=== PATIENT | female | born 1990 | race Caucasian/White ===

== ENCOUNTER → 2020-09-04 16:40 | Outpatient (CLI) | payer BC, SELFPAY | PROVIDERS: Visit Provider Nurse Practitioner Adult Health | DX: Z87.442 Personal history of urinary calculi (principal) | CPT/HCPCS: 82360 ==

== ENCOUNTER 2020-09-17 12:30 | Outpatient (CLI) | payer BC, SELFPAY ==
[2020-09-17 12:59] VITALS: BMI 29.8
--- NOTE | 2020-09-17 18:22 | OB.TRI.PN ---
Progress Notes Date of Service: 09/17/20 Progress Note: 30 year old G [id number] at 37 weeks. Presented to office visit today with decreased movement. NST equviocal and sent to labor and delivery for further monitoring. Irregular contractions but nothing painful. No vaginal bleeding or leakage of fluid. O: Cervix: 2cm/50/-2 FHT:130, moderate variability, accels, reactive TOCO: Irregular, mild Assessment & Plan (1) Decreased movement: PLAN: 1) NST reactive 2) Minimal cervical change and comfortable, ok to D/C home. Labor instructions reviewed 3) D/C home
== END 2020-09-17 15:05 | disposition home or self-care (01) ==
LOC: WPOUT 12:39 → WP 12:40
PROVIDERS: Visit Provider Advanced Practice Midwife
DX: O36.8130 Decreased fetal movements, third trimester, not applicable or unspecified (principal); Z3A.37 37 weeks gestation of pregnancy
CPT/HCPCS: 59025; 59050; 99218; G0378

== ENCOUNTER 2020-09-30 06:50 | Inpatient (IN) | payer BC, SELFPAY ==
[2020-09-30] VITALS (19 sets, daily range): BP systolic 105–136; BP diastolic 56–85; PULSE 85–103; RESP 16; TEMP 37–37.1; BMI 30.4
[2020-09-30] MEDS: Lactated Ringers 1,000 ML 50 ML IV (07:30)
[2020-09-30 08:03] LABS: Absolute Lymphocyte Count 1.49 X10^3/uL (0.83-4.51); Absolute Neutrophil Count 8.3 X10^3/uL (2.0-7.7); Basophil# 0.02 X10^3/uL; Basophil% 0.2 % (0-1); Eosinophil# 0.04 X10^3/uL; Eosinophils% 0.4 % (0-5); Hematocrit 33.8 % (37-47); Hemoglobin 11.6 g/dL (12.0-15.0); Lymphocyte # 1.49 X10^3/ul (0.83-4.51); Lymphocyte % 13.7 % (19-41); Mean Corp Hgb Conc 34.3 g/dL (32-36); Mean Corpuscular Hgb 30.6 pg (27.0-32.0); Mean Corpuscular Volume 89.2 fL (81-99); Mean Platelet Vol. 11.2 fl (6.2-12.0); Monocyte# 0.99 X10^3/uL; Monocyte% 9.1 % (0-10); NRBC Flagged by Analyzer 0 % (0-5); Neutrophil # 8.27 X10^3/uL (2.7-7.7); Platelet Count 132 K/mm3 (150-450); RBC Distribution Width SD 45.5 fl (35.1-43.9); Red Blood Count 3.79 M/mm3 (4.2-5.4); White Blood Count 10.9 K/mm3 (4.4-11.0)
[2020-09-30] MEDS: Oxytocin 30 units/NS 500 ml 30 UNITS/500 ML IV.SOLN IV (08:03)
[2020-09-30 10:22] LABS: Amphetamine Urine VISTA NEGATIVE (<1000 ng/mL); Barbiturate Urine VISTA NEGATIVE (< 200 ng/mL); Benzodiazepine Urine VISTA NEGATIVE (< 200 ng/mL); Cocaine Urine VISTA NEGATIVE (< 300 ng/mL); Ecstacy Urine VISTA NEGATIVE (< 500 ng/mL); Methadone Urine VISTA NEGATIVE (< 300 ng/mL); PCP Urine VISTA NEGATIVE (< 25 ng/mL); THC Urine VISTA NEGATIVE (< 50 ng/mL); Vista UDS pH Range 7
--- NOTE | 2020-09-30 11:55 | PCM.HP.OB ---
HPI - General General Date of Admission: 09/30/20 HPI Narrative MELISSA BELLE, is a 30 F who presents for induction of labor due to polyhydramnios. at 39 weeks with ISIS:10/07/20. OB history significant for macrosomia with last delivery 9lb 10oz uncomplicated. benign gestational thrombocytopenia, history of gestational HTN, calculus of kidney, excessive growth during 97th percentile 9lb 7oz. Maternal Data Information Final ISIS: 10/07/20 Final ISIS Source: US <20 weeks Gestational age: 39 weeks PFSH PFSH Home Medications [place] 09/17/20 [History Last Taken 05/21/20 10:00] aspirin [Aspirin Low Dose] 09/17/20 [History Last Taken 05/21/20 10:00] Allergy/AdvReac Type Severity Reaction Status Date / Time No Known Allergies Allergy Verified 09/17/20 13:01 Social History Smoking Status: Never smoker History Elective abortions Hx Para 2 Spontaneous abortions Hx # Term Pregnancies Ectopic pregnancies Hx # Pregnancies Multiple births # of living children NST FHR Rate Baby A Baseline: 135 Variability:: Moderate Accelerations:: 15 x 15 Decelerations:: None FHR Category:: Category I Uterine Activity:: Every 2-3 minutes ROS Constitutional Constitutional: Reports systems reviewed and no addt'l complaints, except as documented; Denies headache(s) Eyes Eyes: Denies acute decrease in peripheral vision, blurry vision or change in vision ENT HEENT: Reports systems reviewed and no addt'l complaints, except as documented Cardiovascular Cardiovascular: Denies chest pain or dizziness Respiratory/Chest Respiratory/Chest: Denies cough, dyspnea, dyspnea on exertion, shortness of breath at rest or shortness of breath with exertion Gastrointestinal Gastrointestinal: Denies abdominal pain, diarrhea, nausea or vomiting Genitourinary Genitourinary: Denies abdominal discomfort or movement Musculoskeletal Musculoskeletal: Denies limited range of motion Integumentary Integumentary: Reports systems reviewed and no addt'l complaints, except as documented Neurologic Neurologic: Reports systems reviewed and no addt'l complaints, except as documented Psychiatric Psychiatric: Reports systems reviewed and no addt'l complaints, except as documented Endocrine Endocrinology: Reports systems reviewed and no addt'l complaints, except as documented Hematologic/Lymphatic Hematologic/Lymphatic: Reports systems reviewed and no addt'l complaints, except as documented Allergic/Immunologic Allergic/Immunologic: Reports systems reviewed and no addt'l complaints, except as documented Vital Signs Vital Signs Vital Signs: 09/30/20 07:11 09/30/20 08:00 09/30/20 08:39 Pulse Rate 103 H 95 92 Blood Pressure 127/76 H 126/76 H 120/77 BP Systolic 127 126 120 BP Diastolic 76 76 77 09/30/20 09:51 09/30/20 10:48 Pulse Rate 89 86 Blood Pressure 120/70 118/69 BP Systolic 120 118 BP Diastolic 70 69 Weight Weight: 188 lb 4.396 oz Body Mass Index (BMI) 30.4 Physical Exam Const alert and oriented x3 General Appearance: cooperative Orientation / Consciousness: awake, oriented to person, oriented to place and oriented to time Exam Limitations: no limitations HEENT normocephalic Head and Scalp: normal to inspection, normocephalic and atraumatic Face and Sinus: normal facial exam Eyes General Eye: normal appearance of both eyes Neck full ROM Chest Chest: symmetrical chest wall rise Resp normal respiratory effort and normal air movement Auscultation: clear to auscultation bilaterally Cardio regular rate, regular rhythm, S1 normal heart sound, S2 normal heart sound, no murmurs, no rub, no gallops and no clicks GI normal to inspection, nondistended, normoactive bowel sounds and non-tender appearance of the vagina normal Narrative: Membranes stripped, patient tolerated. Pitocin at 8mu's Bladder / Kidney Exam: no CVA tenderness Manual OB Exam: estimated gestational size large, presentation cephalic, dilated 4, effaced 60 and station -2 Back/Spine normal ROM Extremity normal to inspection and full ROM Skin no rashes or lesions noted Neuro oriented x3, CN's II-XII intact bilaterally and moves all extremities Sensorium / Orientation: awake, alert and oriented to person Motor Exam: clonus absent Deep Tendon Reflexes: Rt Patellar (L4): 2+ and Lt Patellar (L4): 2+ Labs Labs Labs: Blood Type A NEGATIVE Antibody Screen NEGATIVE Hct 33.8 % (37-47) L Hgb 11.6 g/dL (12.0-15.0) L HIV negative RPR negative GC/CT negative A Negative Hep C negative HBsAG negative GBS positive Assessment & Plan (1) Encounter for induction of labor: (2) Polyhydramnios affecting : (3) LGA (large for gestational age) fetus: (4) Hx of macrosomia in infant in prior , currently : (5) Benign gestational thrombocytopenia, antepartum: (6) Rh negative state in antepartum period: PLAN: 1) Admit to labor and delivery 2) IV and routine labs 3) COVID 19 testing, asymptomatic 4) Declines LARC 5) Planning unmedicated , positional changes 6) Pitocin per protocol 7) GBS positive, PCN G 5 million then 3million per protocol 8) collaborative physician and notified of patient status
--- NOTE | 2020-09-30 14:07 | PCM.PROGNOTE ---
Subjective Subjective Standing and swaying with contractions, at bedside. Breathing through contractions. Objective Data Objective Data Vital Signs: Vital Signs Pulse BP 93 134/72 H 09/30/20 14:02 09/30/20 14:02 Weight: 188 lb 4.396 oz Body Mass Index (BMI) 30.4 Intake & Output: Intake and Output for Last 24 Hours 09/28/20 09/29/20 09/30/20 23:59 23:59 23:59 Intake Total 117.00 / 117.00 Balance 117.00 / 117.00 Lab / Micro Data Result Diagrams: 09/30/20 07:30 Labs: Laboratory Results - last 24 hr 09/30/20 09/30/20 09/30/20 07:30 07:30 07:30 WBC 10.9 RBC 3.79 L Hgb 11.6 L Hct 33.8 L MCV 89.2 MCH 30.6 MCHC 34.3 RDW Std Deviation 45.5 H RDW Coeff of Lena 14.0 Plt Count 132 L MPV 11.2 Immature Gran % (Auto) 0.600 Neut % (Auto) 76.0 H Lymph % (Auto) 13.7 L [place] % (Auto) 9.1 Eos % (Auto) 0.4 Baso % (Auto) 0.2 Absolute Neuts (auto) 8.3 H Absolute Lymphs (auto) 1.49 Nucleated RBC % 0 Urine Opiates Screen Urine Methadone Screen Ur Barbiturates Screen Ur Phencyclidine Scrn Ur Amphetamines Screen U Methamphetamin-MDMA U Benzodiazepines Scrn Urine Cocaine Screen U Cannabinoids Screen Ur Drug Screen Comment Blood Type A NEGATIVE Antibody Screen Not Reportable NEGATIVE 09/30/20 09:40 WBC RBC Hgb Hct MCV MCH MCHC RDW Std Deviation RDW Coeff of Lena Plt Count MPV Immature Gran % (Auto) Neut % (Auto) Lymph % (Auto) [place] % (Auto) Eos % (Auto) Baso % (Auto) Absolute Neuts (auto) Absolute Lymphs (auto) Nucleated RBC % Urine Opiates Screen NEGATIVE Urine Methadone Screen NEGATIVE Ur Barbiturates Screen NEGATIVE Ur Phencyclidine Scrn NEGATIVE Ur Amphetamines Screen NEGATIVE U Methamphetamin-MDMA NEGATIVE U Benzodiazepines Scrn NEGATIVE Urine Cocaine Screen NEGATIVE U Cannabinoids Screen NEGATIVE Ur Drug Screen Comment Blood Type Antibody Screen Micro: Microbiology 09/30/20 12:25 Mucosa - Nose SARS-CoV-2 Antigen (Rapid) - Final Physical Exam Narrative cervix 4.5 cm/60%/-1 TOCO: every 2-3 minutes, strong, decrease strength and frequency when lying down AROM large amount of clear fluid, tolerated well. Assessment & Plan Assessment/Plan (1) Encounter for induction of labor: (2) Polyhydramnios affecting : PLAN: 1) AROM with patient consent 2) Pitocin per protocol, 8mu's 3) Positional changes, peanut ball 4) Continue with active management
[2020-09-30] MEDS: Oxytocin 10 UNITS/ML Vial IM (16:26)
--- NOTE | 2020-09-30 16:55 | EX.PCM.OBRPT ---
Assessment & Plan (1) (normal spontaneous vaginal delivery): (2) Second degree perineal laceration: Maternal Data Information ISIS Calculator Estimated Delivery Date Method Current WG Current Estimate 10/07/20 Manual 39w 0d Final ISIS: 10/07/20 Final ISIS Source: US <20 weeks Vaginal Delivery Maternal Presentation Maternal Presentation: Medically Indicated Induction Maternal Presentation: polyhydramnios, LGA Type of Induction: Pitocin Operative Information Date of Procedure: 09/30/20 Pre-Operative Diagnosis: Polyhydramnios, LGA Post-Operative Diagnosis: Surgery / Procedure Performed: Spontaneous Vaginal Delivery Type of Anesthesia: Local with 1% Lidocaine Estimated Blood Loss: 400 ml Time of Delivery: 16:20 Findings Description of Procedure: Progressed to complete with strong urge to push. Unmedicated. of viable female infant over 2nd degree perineal laceration. APGARS 8,9. head delivered with body forthcoming, placed on maternal abdomen. Mouth and nares suctioned for secretions and stimulated, strong cry. Pitocin started for active 3rd stage management. Cord cut and clamped after pulsations ceased. Placenta delivered with expression, intact via kaylene with 3 vessel cord. Perineum inspected and revealed 2nd degree perineal laceration repaired with lidocaine and 3.0 vicryl rapide. Fundus firm. Vaginal sweep completed. EBL 400ml. Sponge and instrument count correct. Mom and baby stable, . Family bonding well. notified. Amniotic Fluid Description: Clear (terminal meconium) Placental Delivery Description: Spontaneous Placenta Disposition: [facility] Cord Vessel Description: 3 Vessels Cord Entanglement: Around neck x 1, loose Nuchal Cord Compression: Without compression Infant A Gender: Female (1 minute): 8 (5 minute): 9 Delayed Cord Clamping: Yes Post Vaginal Delivery Medications Given After Delivery: IV Pitocin and - (IM pitocin) Episiotomy Description: None Laceration: 2nd degree Complication Complications: None
[2020-09-30] MEDS: Acetaminophen 500 MG Tablet 1000 MG PO (18:42)
[2020-09-30] MEDS: Ibuprofen 600 MG Tablet PO (23:27)
[2020-10-01 04:15] VITALS: BP 109/55; PULSE 89; RESP 16; TEMP 36.7
[2020-10-01 04:32] LABS: Hematocrit 30.3 % (37-47); Hemoglobin 9.9 g/dL (12.0-15.0); Mean Corp Hgb Conc 32.7 g/dL (32-36); Mean Corpuscular Volume 91.8 fL (81-99); Mean Platelet Vol. 10.4 fl (6.2-12.0); Platelet Count 126 K/mm3 (150-450); RBC Distribution Width CV 14.1 % (11.6-14.6); RBC Distribution Width SD 47.1 fl (35.1-43.9); White Blood Count 12.7 K/mm3 (4.4-11.0)
--- NOTE | 2020-10-01 07:49 | PCM.PN.OB ---
Subjective Subjective patient seen at bedside, doing well. Patient reports good pain control. lochia mild. Objective Data Objective Data Vital Signs: Vital Signs Temp Pulse Resp BP 98.1 F 89 16 109/55 L 10/01/20 04:15 10/01/20 04:15 10/01/20 04:15 10/01/20 04:15 Oxygen Delivery Method Room Air Weight: 85.4 kg Body Mass Index (BMI) 30.4 Intake & Output: Intake and Output for Last 24 Hours 09/29/20 09/30/20 10/01/20 23:59 23:59 23:59 Intake Total 645.87 / 645.87 Output Total 150 / 150 600 / 600 Balance 495.87 / 495.87 -600 / -600 Lab / Micro Data Result Diagrams: 10/01/20 04:27 Labs: Laboratory Results - last 24 hr 09/30/20 07:30: WBC 10.9, RBC 3.79 L, Hgb 11.6 L, Hct 33.8 L, MCV 89.2, MCH 30.6, MCHC 34.3, RDW Std Deviation 45.5 H, RDW Coeff of Lena 14.0, Plt Count 132 L, MPV 11.2, Immature Gran % (Auto) 0.600, Neut % (Auto) 76.0 H, Lymph % (Auto) 13.7 L, [place] % (Auto) 9.1, Eos % (Auto) 0.4, Baso % (Auto) 0.2, Absolute Neuts (auto) 8.3 H, Absolute Lymphs (auto) 1.49, Nucleated RBC % 0 09/30/20 07:30: Blood Type A NEGATIVE, Antibody Screen Not Reportable 09/30/20 07:30: Antibody Screen NEGATIVE 09/30/20 09:40: Urine Opiates Screen NEGATIVE, Urine Methadone Screen NEGATIVE, Ur Barbiturates Screen NEGATIVE, Ur Phencyclidine Scrn NEGATIVE, Ur Amphetamines Screen NEGATIVE, U Methamphetamin-MDMA NEGATIVE, U Benzodiazepines Scrn NEGATIVE, Urine Cocaine Screen NEGATIVE, U Cannabinoids Screen NEGATIVE, Ur Drug Screen Comment 09/30/20 19:35: Screen NEGATIVE, Baby's Blood Type O POSITIVE, Baby's [place]ORA NEGATIVE 10/01/20 04:27: WBC 12.7 H, RBC 3.30 L, Hgb 9.9 L, Hct 30.3 L, MCV 91.8, MCH 30.0, MCHC 32.7, RDW Std Deviation 47.1 H, RDW Coeff of Lena 14.1, Plt Count 126 L, MPV 10.4 Micro: Microbiology 09/30/20 12:25 Mucosa - Nose SARS-CoV-2 Antigen (Rapid) - Final Physical Exam Const alert and oriented x3 General Appearance: cooperative HEENT normocephalic Neck General: normal visual inspection GI soft to palpation and non-distended GI Narrative: Fundus firm Extremity normal to inspection and no calf tenderness Skin no rashes or lesions noted Neuro oriented x3 and CN's II-XII intact bilaterally Psych mental status grossly normal Assessment & Plan (1) (normal spontaneous vaginal delivery): PLAN: PPD# 1 , Doing well Routine care pain mgmt ambulation dc home (2) Second degree perineal laceration:
--- NOTE | 2020-10-01 07:51 | PCM.DC ---
Discharge Instructions Diet Discharge Diet: No restrictions Activity May resume sexual activity in: 6-8 weeks Dressing / Incision Call your doctor if you observe: Fever of 101 or Higher, Inability to urinate, Using more than 1 pad per hour and Uncontrolled pain Follow Up Care Please Follow Up With: aMddie Dumont MD When: 1-2 weeks post and again at 6 weeks post . [phone] Test Results: Test results from this visit will be discussed in further detail at your follow-up appointment, if applicable. Discharge Plan Admission Admit Date/Time: 09/30/20 06:50 Attending Provider: Maura Rice Primary Care Provider: Saji Obrien Instructions Forms: Information Discharge Orders/Prescriptions Prescriptions: New acetaminophen 500 mg Tablet 1,000 mg PO Q6H PRN PRN (Reason: Pain 1-10 Or Fever) Qty: 0 RF: 0 ibuprofen 600 mg Tablet 600 mg PO Q6H PRN PRN (Reason: Pain Score 1-3) Qty: 0 RF: 0 Continued [id number] 1 mg Tablet 1 tab PO RF: 0 Referrals / Follow Up: Saji Obrien DO [Primary Care Provider] -
[2020-10-01 08:06] VITALS: BP 102/66; PULSE 81; RESP 16; TEMP 36.3
[2020-10-01 11:16] VITALS: BP 107/57; PULSE 88; RESP 16; TEMP 37.1
[2020-10-01 15:50] VITALS: BP 102/56; PULSE 90; RESP 16; TEMP 36.6
== END 2020-10-01 18:10 | disposition home or self-care (01) | DRG 806 ==
PROVIDERS: Admitting Provider Advanced Practice Midwife; Visit Provider Advanced Practice Midwife
DX: O36.63X0 Maternal care for excessive fetal growth, third trimester, not applicable or unspecified (principal); O99.12 Other diseases of the blood and blood-forming organs and certain disorders involving the immune mechanism complicating childbirth; Z37.0 Single live birth; O40.3XX0 Polyhydramnios, third trimester, not applicable or unspecified; Z3A.39 39 weeks gestation of pregnancy; O70.1 Second degree perineal laceration during delivery; O13.4 Gestational [pregnancy-induced] hypertension without significant proteinuria, complicating childbirth; D69.6 Thrombocytopenia, unspecified; O69.82X0 Labor and delivery complicated by other cord entanglement, without compression, not applicable or unspecified
CPT/HCPCS: 59025; 59050; 80307; 85025; 85027; 85461; 86850; 86900; 86901; 87426; 90384; 99218; J7120; G0378; J2790

== ENCOUNTER 2022-06-23 22:13 | Emergency (ER) | payer BC, SELFPAY ==
[2022-06-23 22:14] VITALS: BP 99/81; PULSE 148; RESP 22; TEMP 36.2; O2SAT 100; BMI 20.6
--- NOTE | 2022-06-23 22:25 | EDS_ITS ---
HPI HPI - GI History of Present Illness Chief Complaint: Diarrhea Narrative Narrative: 32-year-old female who denies significant past medical history presents with her because of nausea, vomiting, and diarrhea that she has had for the last 3 days. She states her symptoms began approximately Thursday where she had a fever, with nausea, vomiting, and diarrhea. While her nausea and vomiting has subsided, the diarrhea continues. She states that she has been having diarrhea every hour for the last day. She feels lightheaded and mildly short of breath. Today, she noticed blood in her stool/diarrhea. She denies taking any medications, no blood thinners. She has not had any recent NSAIDs or aspirin, no recent antibiotics. She does state that she does have cattle that have been having diarrhea. She presents because of the blood in her stool, and feeling weak and dehydrated. Of note, she has stated that in the past she has noticed blood with her stool on occasion but has not done anything about it. PFSH PFS Medical History no medical history no medical history Allergy/AdvReac Type Severity Reaction Status Date / Time No Known Allergies Allergy Verified 09/17/20 13:01 Social History Smoking Status: Never smoker ROS ROS ED ROS Narrative Constitutional: Resolved fever, no chills. Positive weakness. HEENT: No sore throat. No neck pain. No loss of vision. No rhinorrhea. Cardiovascular: Occasional chest pain. No palpitations. No pedal edema. Respiratory: No cough, positive shortness of breath. Abdominal: Diffuse, crampy abdominal pain. Nausea and vomiting resolved. Diarrhea every hour, occasional bloody stools. Genitourinary: No dysuria. No hematuria. Musculoskeletal: No myalgias. No arthralgias. Neurologic: No headaches. No dizziness. Positive lightheadedness. Skin: No rash. No change in color. Psychiatric: No depression. No anxiety. EXAM Physical Exam Narrative Exam Narrative: Afebrile. Vital signs noted. HEENT: Normocephalic. Atraumatic. PERRL, EOMI. Neck soft and supple. No point tenderness or step off. Cardiovascular: Positive tachycardia. No murmurs, rubs, or gallops appreciated. Respiratory: No tachypnea. Lungs clear to auscultation bilaterally. Gastrointestinal: Abdomen soft, nontender, with normoactive bowel sounds. No rebound or guarding. Neurological: Awake. Alert. Nonfocal, nonlateralizing. Skin: No rash. Normal color. No pallor. Musculoskeletal: No pedal edema. Full range of motion extremities. Const Vital Signs: 06/23/22 22:14 06/24/22 00:22 Temperature 97.1 F L Temperature Source Temporal Pulse Rate 148 H 103 H Respiratory Rate 22 H 16 Blood Pressure 99/81 H 122/81 H Blood Pressure Mean 87 94 Pulse Ox 100 99 Oxygen Delivery Method Room Air Room Air MDM MDM MDM Narrative Medical decision making narrative: In the differential diagnosis is gastroenteritis. I have low suspicion for C. difficile as she has not had recent antibiotics. I do feel she may be dehydrated given her tachycardia and borderline hypotension. She will be bolused normal saline 1 L intravenously. I also have low suspicion for parasitic diarrhea, however she states she has been around cattle. Stool for ova and parasites and enteric pathogens will be sent. I will check her CBC to make sure he is she is not anemic. I will check her electrolyte panel to see if she is dehydrated to look at her BUN and creatinine, and her sodium and potassium given her large amounts of diarrhea, and nausea and vomiting. Additionally, I will obtain CT imaging to rule out ulcerative colitis, infectious colitis, or an obstruction. Patient was given Bentyl for her cramping. She has a nonsurgical abdomen currently on examination. I reviewed her prior outpatient record and find it noncontributory to her recent, current chief complaint. I reviewed her laboratory work, she has a normal white count of 5.8, hemoglobin slightly hemoconcentrated at 16.3, hematocrit 46.2, platelet count slightly low at 142 which I think is nonspecific. There is evidence of mild dehydration on her CMP with a sodium of 133, potassium 3.3. This was replaced orally with 40 mill equivalents. She has a normal anion gap of 6, BUN normal at 14, creatinine 0.98. Glucose is 97. Lipase normal at 76. LFTs are grossly unremarkable except total bili of 1.2. Urinalysis was obtained and reviewed which is negative for infection. I do not feel that prescription antibiotics are indicated. There are ketones present consistent with her dehydration from her vomiting and diarrhea. CT of the abdomen and pelvis was obtained after negative serum . It does show mild thickening of the distal small bowel, but no evidence of colitis. Once again, I do not feel antibiotics are indicated because I do feel it may complicate things and cause more diarrhea. Her CT is consistent with enteritis. I do feel that it may be more self-limiting. Although she is having bloody diarrhea, she has lot not lost a large amount of blood. I feel she can be discharged safely home with follow-up to her primary care physician and to gastroenterology. She was referred to Dr. Perry. Return instructions to the emergency department were reviewed. She is to return with hematemesis, increased rectal bleeding, new or worsening symptoms. Patient and her are agreeable to the plan. Disposition is discharged home in stable condition. History & Record Review Discussion w/independent historian: Patient Additional record(s) reviewed:: Prior outpatient record Lab Data Attestation: I reviewed the patient's lab results. Labs: Laboratory Results - last 24 hr 06/23/22 06/23/22 06/23/22 22:40 22:40 22:40 WBC 5.8 RBC 5.44 H Hgb 16.3 H Hct 46.2 MCV 84.9 MCH 30.0 MCHC 35.3 RDW Std Deviation 36.3 RDW Coeff of Lena 11.9 Plt Count 142 L MPV 10.7 Immature Gran % (Auto) 0.500 Neut % (Auto) 73.4 H Lymph % (Auto) 13.4 L [place] % (Auto) 12.0 H Eos % (Auto) 0.2 Baso % (Auto) 0.5 Absolute Neuts (auto) 4.3 Absolute Lymphs (auto) 0.78 L Nucleated RBC % 0 Sodium 133 L Potassium 3.3 L Chloride 103 Carbon Dioxide 24.0 Anion Gap 6 BUN 14 Creatinine 0.98 Estim Creat Clear Calc 76.24 Est GFR (MDRD) Af Amer 85 Est GFR (MDRD) Non-Af 70 BUN/Creatinine Ratio 14.3 Glucose 97 Calcium 9.5 Total Bilirubin 1.20 H AST 16 ALT 16 Alkaline Phosphatase 71 Total Protein 7.5 Albumin 3.7 Globulin 3.8 Albumin/Globulin Ratio 1.0 Lipase 76 Serum , Qual NEGATIVE Urine Color Urine Clarity Urine pH Ur Specific [place] Urine Protein Urine Glucose (UA) Urine Ketones Urine Occult Blood Urine Nitrite Urine Bilirubin Urine Urobilinogen Ur Leukocyte Esterase Urine RBC Urine WBC Ur Squamous Epith Cells Urine Bacteria Urine Mucus 06/23/22 23:21 WBC RBC Hgb Hct MCV MCH MCHC RDW Std Deviation RDW Coeff of Lena Plt Count MPV Immature Gran % (Auto) Neut % (Auto) Lymph % (Auto) [place] % (Auto) Eos % (Auto) Baso % (Auto) Absolute Neuts (auto) Absolute Lymphs (auto) Nucleated RBC % Sodium Potassium Chloride Carbon Dioxide Anion Gap BUN Creatinine Estim Creat Clear Calc Est GFR (MDRD) Af Amer Est GFR (MDRD) Non-Af BUN/Creatinine Ratio Glucose Calcium Total Bilirubin AST ALT Alkaline Phosphatase Total Protein Albumin Globulin Albumin/Globulin Ratio Lipase Serum , Qual Urine Color Yellow Urine Clarity Clear Urine pH 6.0 Ur Specific [place] 1.020 Urine Protein 30 H Urine Glucose (UA) Normal Urine Ketones 50 H Urine Occult Blood 10 H Urine Nitrite Negative Urine Bilirubin Negative Urine Urobilinogen Normal Ur Leukocyte Esterase Negative Urine RBC 0 SEEN Urine WBC 0 SEEN Ur Squamous Epith Cells 0-5 SEEN Urine Bacteria 0 SEEN Urine Mucus 0 SEEN Radiography Diagnostic Testing: Clinical Impression(s) from Imaging Studies Abdomen/Pelvis CT 06/24/22 22:24 IMPRESSION: undefined Discharge Plan Triage Chief Complaint: Diarrhea ED Provider: Jean Paul Ambrose Dx/Rx/DC Orders Clinical Impression: Bloody diarrhea, Hyponatremia, Hypokalemia, Dehydration, Enteritis Instructions: ED Dehydration (Adult), ED Diarrhea, Unknown Cause, ED Hypokalemia, ED Lower GI Bleeding (Stable), ED Vomiting and Diarrhea ... Primary Care Provider: Saji Obrien Referrals: Jamie Perry DO [Med Staff - Active Staff] - As soon as possible Saji Obrien DO [Primary Care Provider] - 1-2 Days if not improving
[2022-06-23] MEDS: 0.9% Normal Saline 1,000 ML 1000 ML IV (22:37)
[2022-06-23 22:56] LABS: Absolute Lymphocyte Count 0.78 X10^3/uL (0.83-4.51); Absolute Neutrophil Count 4.3 X10^3/uL (2.0-7.7); Basophil# 0.03 X10^3/uL; Basophil% 0.5 % (0-1); Eosinophil# 0.01 X10^3/uL; Eosinophils% 0.2 % (0-5); Hematocrit 46.2 % (37-47); Hemoglobin 16.3 g/dL (12.0-15.0); Lymphocyte # 0.78 X10^3/ul (0.83-4.51); Lymphocyte % 13.4 % (19-41); Mean Corp Hgb Conc 35.3 g/dL (32-36); Mean Corpuscular Volume 84.9 fL (81-99); Mean Platelet Vol. 10.7 fl (6.2-12.0); NRBC Flagged by Analyzer 0 % (0-5); Neutrophil # 4.27 X10^3/uL (2.7-7.7); Neutrophil % 73.4 % (47-70); Platelet Count 142 K/mm3 (150-450); RBC Distribution Width CV 11.9 % (11.6-14.6); RBC Distribution Width SD 36.3 fl (35.1-43.9); Red Blood Count 5.44 M/mm3 (4.2-5.4); White Blood Count 5.8 K/mm3 (4.4-11.0)
[2022-06-23 23:10] LABS: AST(SGOT) 16 U/L (15-37); Alanine Aminotransfer ALT/SGPT 16 U/L (13-56); Albumin, Serum 3.7 g/dL (3.2-5.0); Alkaline Phosphatase 71 U/L (45-117); Anion Gap 6 (5-15); BUN 14 mg/dL (7-18); BUN/Creat Ratio 14.3 RATIO (10-20); Calcium,Total 9.5 mg/dL (8.5-10.1); Chloride 103 mmol/L (98-107); Creatinine, Serum 0.98 mg/dL (0.55-1.02); EST Glomerular Filtration Rate 70 mL/min (>60); Est Glom Filt Rate - Afr Amer 85 mL/min (>60); Estimated Creatinine Clearance 76.24 ml/min; Globulin 3.8 g/dL (2.2-4.2); Glucose 97 mg/dL (74-106); Lipase 76 U/L (73-393); Potassium 3.3 mmol/L (3.5-5.1); Protein, Total 7.5 g/dL (6.4-8.2); Sodium Level 133 mmol/L (136-145)
[2022-06-23 23:39] LABS: Bacteria 0 SEEN /hpf (None Seen); Glucose, Dipstick Normal (Normal); Ketone-Dipstick 50 mg/dl (Negative); Leukocyte Esterase-Dipstick Negative /ul (Negative); Mucous, Urine 0 SEEN /hpf (<or=2+); Nitrite-Dipstick Negative (Negative); Occult Blood-Urine 10 /ul (Negative); Protein-Dipstick 30 mg/dl (Negative); Red Blood Cells-Urine 0 SEEN /hpf (0-5); Urine Bilirubin Dipstick Negative (Negative); Urine Urobilinogen Normal (Normal); White Blood Cells 0 SEEN /hpf (0-5)
[2022-06-23 23:55] LABS: Color, Urine Yellow (Yellow); Squamous Epithelial Cells - UA 0-5 SEEN /hpf (5-10); Urine Clarity Clear (Clear)
[2022-06-23 23:55] LABS: Internal QC Validated? YES +Cl - CLEAR BKGD; Pregnancy, Serum, hCG Quali. NEGATIVE Negative
[2022-06-24 00:22] VITALS: BP 122/81; PULSE 103; RESP 16; O2SAT 99
[2022-06-24] MEDS: Potassium Chloride Oral Tablet 20 MEQ 40 MEQ PO (01:19)
[2022-06-24 01:26] VITALS: PULSE 97; RESP 16; O2SAT 99
--- NOTE | 2022-06-24 22:24 | CT_ITS ---
EXAM: CT abdomen and pelvis with contrast. HISTORY: Diarrhea TECHNIQUE: CT Abdomen And Pelvis W/ Contrast Injection. A radiation dose optimization technique was used for this scan. COMPARISON: None. LIMITATIONS: None. LOWER CHEST: Normal. LIVER: Normal. GALLBLADDER: Normal. BILE DUCTS: Normal. PANCREAS: Normal. SPLEEN: Borderline enlarged.. ADRENAL GLANDS: Normal. KIDNEYS/URETERS/BLADDER: Normal. AORTA: Normal caliber. BOWEL/MESENTERY: No definite colitis. There is mild wall thickening of loops of distal small bowel. No small bowel obstruction. APPENDIX: The appendix is fluid-filled and upper normal in caliber measuring up to 6 mm in diameter. No adjacent inflammatory change. PERITONEUM: Trace free pelvic fluid. REPRODUCTIVE ORGANS: Normal. BONES/SOFT TISSUES: No acute fracture. OTHER: None. CONCLUSION: Suspected mild enteritis. Electronically Signed: Gurmeet Meeks MD at 0:59 EDT , CT/Abdomen/Pelvis W IV Cont ONLY IMPRESSION: undefined
== END 2022-06-24 01:27 | disposition home or self-care (01) ==
LOC: ED 22:46
PROVIDERS: Emergency Provider Emergency Medicine; Visit Provider Emergency Medicine
DX: E87.1 Hypo-osmolality and hyponatremia (principal); E87.6 Hypokalemia; E86.0 Dehydration; K52.9 Noninfective gastroenteritis and colitis, unspecified
CPT/HCPCS: 74177; 80053; 81001; 83630; 83690; 84703; 85025; 87177; 87209; 87493; 96360; 99283; J7030; Q9967; A4216

== ENCOUNTER 2022-12-08 12:56 | Outpatient (CLI) | payer BC, SELFPAY ==
[2022-12-08] MEDS: 0.9% NaCl Peripheral Flush Adult/Peds IV (13:11)
[2022-12-08] MEDS: Lactated Ringers 1,000 ML 999 ML IV (13:11)
[2022-12-08 13:12] VITALS: BP 113/67; PULSE 89; RESP 16; TEMP 36.7; O2SAT 100; BMI 20.1
[2022-12-08 14:18] VITALS: BP 109/62; PULSE 78
== END 2022-12-08 12:57 | disposition home or self-care (01) ==
LOC: MEDOUTP 12:57
PROVIDERS: Referring Provider Obstetrics & Gynecology; Visit Provider Obstetrics & Gynecology
DX: O21.1 Hyperemesis gravidarum with metabolic disturbance (principal); Z3A.00 Weeks of gestation of pregnancy not specified
CPT/HCPCS: 96365; J7120; A4216

== ENCOUNTER 2022-12-15 09:41 | Emergency (ER) | payer BC, SELFPAY ==
[2022-12-15] VITALS (8 sets, daily range): BP systolic 103–124; BP diastolic 64–81; PULSE 76–103; RESP 14–20; TEMP 36.3; O2SAT 98–99; BMI 20.5
--- NOTE | 2022-12-15 10:12 | EX.ED.DYSGE1 ---
HPI History of Present Illness Chief Complaint: Palpitations Informant: patient Narrative Narrative: With palpitations nausea vomiting dehydration. Patient states she is 9 weeks . She started with nausea and vomiting at about 5 to 6 weeks. She has been tried on vitamin B6 but it has not helped. She noticed that she feels very dehydrated. She is having less urination. When she gets up and walks around she feels like her heart is racing. Her energy level is low. She saw her OB today who referred her here for fluids and EKG. Patient does not have any leg swelling or pain. No travel surgery immobilization personal or family history of DVT or PE. No hemoptysis. She is overall very healthy and normally not on any medicines. PFSH PFSH Allergy/AdvReac Type Severity Reaction Status Date / Time No Known Allergies Allergy Verified 12/15/22 09:41 Social History Smoking Status: Never smoker ROS ROS ED ROS Narrative A complete review of systems was performed and is negative except as documented in the history of present illness. Some specific details below. Constitutional: No recent fevers or chills. Have a sense of malaise but she thinks that this is likely due to the dehydration. EYE: No discharge, visual complaints, or pain. ENT: No difficulty swallowing. No swelling. No pain. No reflux symptoms. CV: See history of present illness. Respiratory: Patient is not coughing. She is really not short of breath. Her energy level is quite low especially with activity though GI: No abdominal pain. Does have nausea and vomiting. She is having trouble even getting any fluids to stay down. She does not have diarrhea. : No frequency dysuria or hematuria. No bleeding or discharge. Musculoskeletal: No recent trauma. No pains. No swelling.. DVT. Skin: No rash. Nondiaphoretic. Neuro: No weakness or numbness. Endocrine: No polyuria or polydipsia., She has decreased total volume of urine. EXAM Physical Exam Narrative Exam Narrative: CONSTITUTIONAL: Patient is nontoxic in appearance. The patient looks comfortable. Work of breathing looks normal. HEENT: No notable trauma. Mucous membranes quite dry. No sinus tenderness. No indication of pain with swallowing. EYES: No conjunctival injection. No proptosis. No pallor or icterus. NECK:No JVD. No stridor. CARDIOVASCULAR: Regular rate. Regular rhythm. No notable murmur. No JVD. Is actually normal at about 90 while laying in bed. But she states if she gets up and gets active it races. RESPIRATORY: No respiratory distress. Breathing is unlabored. No wheezes. No rhonchi. No rales. No pain with a deep breath. No chest wall tenderness. GASTROINTESTINAL: Not distended. Bowel sounds are normal. No tenderness. No guarding. No rebound. No palpable mass. No bruit is heard. GENITOURINARY: No tenderness over the bladder. No CVA tenderness. MUSCULOSKELETAL: Atraumatic. No peripheral edema. No cord. No tenderness along the deep venous system. No asymmetry. No distended veins. NEUROLOGICAL: Patient is alert and appropriate. No focal deficit noted. SKIN: No noted rashes. No diaphoresis. PSYCHIATRIC: Patient is calm. Mood is appropriate. Const Vital Signs: 12/15/22 09:42 12/15/22 10:33 12/15/22 10:33 Temperature 97.4 F L Temperature Source Oral Pulse Rate 103 H Respiratory Rate 14 Respiratory Effort Normal Non-Labored Normal Non-Labored Respiratory Pattern Normal Blood Pressure 124/81 H Blood Pressure Mean 95 Pulse Ox 98 Oxygen Delivery Method Room Air 12/15/22 11:10 12/15/22 12:07 12/15/22 13:23 Temperature Temperature Source Pulse Rate 82 79 79 Respiratory Rate 19 H 14 14 Respiratory Effort Respiratory Pattern Blood Pressure 104/68 104/66 106/69 Blood Pressure Mean 80 78 81 Pulse Ox Oxygen Delivery Method Room Air Room Air Room Air 12/15/22 14:17 Temperature Temperature Source Pulse Rate 76 Respiratory Rate 15 Respiratory Effort Respiratory Pattern Blood Pressure 103/64 Blood Pressure Mean 77 Pulse Ox Oxygen Delivery Method Room Air MDM MDM MDM Narrative Medical decision making narrative: Patient CBC is normal. Patient's electrolytes show no marked abnormalities. No sign of acute kidney injury. Urine does not show signs of infection. Patient's heart rate is down to 83 after just 1 L of fluid. She has not gotten the second liter yet. Even with that she was walked. Her saturations stayed up in the 90s. Her heart rate went from about 79 up to 90. Nursing said she did very well. Patient states when she stood up from the edge of the bed her heart rate went up to 120s. But the nurse did not see any indication of this. We will get her the other liter that she is supposed to get and recheck her again. Patient got her second liter of fluids. Her heart rate is now down to 70s in bed. She does feel better when she gets up and walks around now. When she first stands up she gets a slight bump of her heart rate up to about 120s but then it rapidly comes down to well below 100. She does not desaturate. Patient also had symptoms like this with some of her other pregnancies. 1 she was even on beta-blockers for this after seeing cardiology. But she feels as though the fluids have really helped this time. I will call her OB center, I have Dr. Doshi on page. I do not think this patient needs to be worked up for pulmonary embolus. She has a history of tachycardia with standing with the pregnancies. She does not carry an official diagnosis of POTS. She is feeling better. Her OB just wrote for Zofran today so she should have that at the drugstore. I was able to talk with Dr. Doshi. Plan will be close follow-up. They will recheck her in the next few days. If she is still having issues they may get her into infusion center to get IV fluids. We agreed that we do not feel she needs to be worked up for pulmonary embolus. Lab Data Attestation: I reviewed the patient's lab results. Labs: Laboratory Results - last 24 hr 12/15/22 12/15/22 10:30 10:36 WBC 7.5 RBC 4.62 Hgb 14.3 Hct 39.7 MCV 85.9 MCH 31.0 MCHC 36.0 RDW Std Deviation 36.1 RDW Coeff of Lena 11.7 Plt Count 131 L MPV 11.1 Immature Gran % (Auto) 0.400 Neut % (Auto) 80.1 H Lymph % (Auto) 12.9 L [place] % (Auto) 6.0 Eos % (Auto) 0.3 Baso % (Auto) 0.3 Absolute Neuts (auto) 6.0 Absolute Lymphs (auto) 0.97 Nucleated RBC % 0 Sodium 135 L Potassium 3.4 L Chloride 105 Carbon Dioxide 24.0 Anion Gap 6 BUN 11 Creatinine 0.74 Estim Creat Clear Calc 100.25 Est GFR (MDRD) Af Amer 117 Est GFR (MDRD) Non-Af 97 BUN/Creatinine Ratio 14.9 Glucose 98 Calcium 8.8 Urine Color Yellow Urine Clarity Sl. Cloudy Urine pH 7.0 Ur Specific [place] 1.010 Urine Protein 30 H Urine Glucose (UA) Normal Urine Ketones 50 H Urine Occult Blood Negative Urine Nitrite Negative Urine Bilirubin Negative Urine Urobilinogen Normal Ur Leukocyte Esterase 25 H Urine RBC 0 SEEN Urine WBC 0 SEEN Ur Squamous Epith Cells 0-5 SEEN Urine Bacteria 0 SEEN Urine Mucus 0 SEEN EKG Initial EKG: Comments: Interpretation the patient's EKG before she got IV fluids showed a normal sinus rhythm with a rate of 97. No ventricular ectopy. No acute ST elevation or depression. No S1, Q3, T3. There is slight respiratory variation. CO interval, QRS duration and QTc are normal. Discharge Plan Triage Chief Complaint: Palpitations ED Provider: Chava Armas Dx/Rx/DC Orders Clinical Impression: Hyperemesis gravidarum, History of tachycardia, Nausea & vomiting, Dehydration Instructions: ED Hyperemesis Gravidarum, ED Palpitations Primary Care Provider: Saji Obrien Referrals: Becki Doshi MD [Med Staff - Active Staff] - 3-5 Days Saji Obrien DO [Primary Care Provider] - Disposition Disposition: Home, Self Care
--- NOTE | 2022-12-15 10:13 | NURSING ---
NO OLD EKG
[2022-12-15 10:32] LABS: Bacteria 0 SEEN /hpf (None Seen); Mucous, Urine 0 SEEN /hpf (<or=2+); Red Blood Cells-Urine 0 SEEN /hpf (0-5); White Blood Cells 0 SEEN /hpf (0-5)
[2022-12-15] MEDS: Ondansetron 4 MG/2 ML Vial IV (10:32)
[2022-12-15] MEDS: 0.9% Normal Saline (1000mL) 2,000 ML 1000 ML IV (10:32)
[2022-12-15 10:43] LABS: Color, Urine Yellow (Yellow); Glucose, Dipstick Normal (Normal); Ketone-Dipstick 50 mg/dl (Negative); Leukocyte Esterase-Dipstick 25 /ul (Negative); Nitrite-Dipstick Negative (Negative); Occult Blood-Urine Negative /ul (Negative); Protein-Dipstick 30 mg/dl (Negative); Urine Bilirubin Dipstick Negative (Negative); Urine Clarity Sl. Cloudy (Clear); Urine Urobilinogen Normal (Normal)
[2022-12-15 10:48] LABS: Squamous Epithelial Cells - UA 0-5 SEEN /hpf (5-10)
[2022-12-15 10:49] LABS: Absolute Lymphocyte Count 0.97 X10^3/uL (0.83-4.51); Basophil# 0.02 X10^3/uL; Basophil% 0.3 % (0-1); Eosinophil# 0.02 X10^3/uL; Eosinophils% 0.3 % (0-5); Hematocrit 39.7 % (37-47); Hemoglobin 14.3 g/dL (12.0-15.0); Lymphocyte # 0.97 X10^3/ul (0.83-4.51); Lymphocyte % 12.9 % (19-41); Mean Corpuscular Volume 85.9 fL (81-99); Mean Platelet Vol. 11.1 fl (6.2-12.0); Monocyte# 0.45 X10^3/uL; NRBC Flagged by Analyzer 0 % (0-5); Neutrophil # 6.04 X10^3/uL (2.7-7.7); Neutrophil % 80.1 % (47-70); Platelet Count 131 K/mm3 (150-450); RBC Distribution Width CV 11.7 % (11.6-14.6); RBC Distribution Width SD 36.1 fl (35.1-43.9); Red Blood Count 4.62 M/mm3 (4.2-5.4); White Blood Count 7.5 K/mm3 (4.4-11.0)
[2022-12-15 11:00] LABS: Anion Gap 6 (5-15); BUN 11 mg/dL (7-18); BUN/Creat Ratio 14.9 RATIO (10-20); Calcium,Total 8.8 mg/dL (8.5-10.1); Chloride 105 mmol/L (98-107); Creatinine, Serum 0.74 mg/dL (0.55-1.02); EST Glomerular Filtration Rate 97 mL/min (>60); Est Glom Filt Rate - Afr Amer 117 mL/min (>60); Estimated Creatinine Clearance 100.25 ml/min; Glucose 98 mg/dL (74-106); Potassium 3.4 mmol/L (3.5-5.1); Sodium Level 135 mmol/L (136-145)
--- NOTE | 2022-12-15 13:29 | ED.RN ---
Addendum entered by Delmy Manuel 12/15/22 13:37: IMMEDIATELY AFTER STANDING PT HEART RATE CAN TO 120-130. ABOUT 1 SECOND AFTER STANDING, PT HEART RATE WENT DOWN TO 106. AMBULATION FOLLOWED AFTER PT HAD BEEN STANDING FOR ABOUT 30 SECONDS. PT DENIED LIGHTHEADEDNESS/DIZZINESS. PT STATE SHE FELT BETTER. Original Note: FOLLOWING SECOND LITER BOLUS. PT AMBULATED WITH PULSE OX. PRIOR TO STANDING, PT IN SEMI-FOWLERS. VITAL SIGNS HEART RATE 95 AND SPO2 99. PT STOOD UP. VITAL SIGNS HEART RATE 106 AND SPO2 99. PT AMBULATED DOWN HALLWAY AND BACK. VITAL SIGNS HEART RATE 107, SPO2 99.
== END 2022-12-15 15:21 | disposition home or self-care (01) ==
PROVIDERS: Emergency Provider Emergency Medicine; Visit Provider Emergency Medicine
DX: O21.0 Mild hyperemesis gravidarum (principal); Z3A.09 9 weeks gestation of pregnancy
CPT/HCPCS: 80048; 81001; 85025; 93005; 96361; 96374; 99285; J7030; J2405

== ENCOUNTER 2022-12-29 11:23 | Outpatient (CLI) | payer BC, SELFPAY ==
[2022-12-29 11:34] VITALS: BP 102/57; PULSE 91; RESP 16; TEMP 36.2; O2SAT 100; BMI 20.6
[2022-12-29] MEDS: Lactated Ringers 1,000 ML 999 ML IV (11:34)
[2022-12-29] MEDS: 0.9% NaCl Peripheral Flush Adult/Peds IV (11:34)
[2022-12-29 12:43] VITALS: BP 99/62; PULSE 80; RESP 14; TEMP 36.2; O2SAT 100
== END 2022-12-29 11:24 | disposition home or self-care (01) ==
LOC: MEDOUTP 11:23
PROVIDERS: Referring Provider Advanced Practice Midwife; Visit Provider Advanced Practice Midwife
DX: O21.9 Vomiting of pregnancy, unspecified (principal); O99.280 Endocrine, nutritional and metabolic diseases complicating pregnancy, unspecified trimester; Z3A.00 Weeks of gestation of pregnancy not specified
CPT/HCPCS: 96365; J7120; A4216

== ENCOUNTER 2023-07-20 07:39 | Inpatient (IN) | payer BC, SELFPAY ==
[2023-07-20] VITALS (23 sets, daily range): BP systolic 95–144; BP diastolic 54–83; PULSE 24–110; RESP 12–18; TEMP 36.4–36.9; O2SAT 80–100; BMI 32.4
[2023-07-20] MEDS: Lactated Ringers 1,000 ML 50 ML IV (07:40)
[2023-07-20 08:01] LABS: Absolute Lymphocyte Count 1.23 X10^3/uL (0.83-4.51); Absolute Neutrophil Count 7.2 X10^3/uL (2.0-7.7); Basophil# 0.02 X10^3/uL; Basophil% 0.2 % (0-1); Eosinophil# 0.06 X10^3/uL; Eosinophils% 0.7 % (0-5); Hematocrit 32.7 % (37-47); Hemoglobin 11.3 g/dL (12.0-15.0); Lymphocyte # 1.23 X10^3/ul (0.83-4.51); Lymphocyte % 13.3 % (19-41); Mean Corp Hgb Conc 34.6 g/dL (32-36); Mean Corpuscular Hgb 31.7 pg (27.0-32.0); Mean Corpuscular Volume 91.9 fL (81-99); Mean Platelet Vol. 10.9 fl (6.2-12.0); Monocyte# 0.66 X10^3/uL; Monocyte% 7.2 % (0-10); NRBC Flagged by Analyzer 0 % (0-5); Neutrophil # 7.22 X10^3/uL (2.7-7.7); Neutrophil % 78.2 % (47-70); Platelet Count 114 K/mm3 (150-450); RBC Distribution Width CV 14.1 % (11.6-14.6); RBC Distribution Width SD 47.1 fl (35.1-43.9); Red Blood Count 3.56 M/mm3 (4.2-5.4); White Blood Count 9.2 K/mm3 (4.4-11.0)
--- NOTE | 2023-07-20 08:08 | PCM.HP.OB ---
HPI - General General Date of Admission: 07/20/23 HPI Narrative MELISSA BELLE, is a 33 F who presents ISIS:07/21/23 for elective induction of labor at 39w6d for suspected macrosomia and mild polyhydramnios. Maternal Data Information ISIS Calculator Estimated Delivery Date Method Current WG Current Estimate 07/21/23 Manual 39w 6d Final ISIS: 07/21/23 PFSH PFSH Medical History no medical history Home Medications valacyclovir 500 mg tablet 500 mg PO BID oral hsv 07/20/23 [History Last Taken 07/19/23] Allergy/AdvReac Type Severity Reaction Status Date / Time No Known Allergies Allergy Verified 07/20/23 08:48 Family History no significant family his Surgical History no surgical history Social History Smoking Status: Never smoker History Elective abortions Hx Para 3 Spontaneous abortions Hx # Term Pregnancies Ectopic pregnancies Hx # Pregnancies Multiple births # of living children NST FHR Rate Baby A Baseline: 140 Variability:: Moderate Accelerations:: 15 x 15 Decelerations:: None FHR Category:: Category I Uterine Activity:: every 2 minutes, strong ROS Constitutional Constitutional: Reports systems reviewed and no addt'l complaints, except as documented; Denies headache(s) Eyes Eyes: Denies acute decrease in peripheral vision, blurry vision or change in vision ENT HEENT: Reports systems reviewed and no addt'l complaints, except as documented Cardiovascular Cardiovascular: Denies chest pain or dizziness Respiratory/Chest Respiratory/Chest: Denies cough, dyspnea, dyspnea on exertion, shortness of breath at rest or shortness of breath with exertion Gastrointestinal Gastrointestinal: Denies abdominal pain, diarrhea, nausea or vomiting Genitourinary Genitourinary: Denies abdominal discomfort Musculoskeletal Musculoskeletal: Denies limited range of motion Integumentary Integumentary: Reports systems reviewed and no addt'l complaints, except as documented Neurologic Neurologic: Reports systems reviewed and no addt'l complaints, except as documented Psychiatric Psychiatric: Reports systems reviewed and no addt'l complaints, except as documented Endocrine Endocrinology: Reports systems reviewed and no addt'l complaints, except as documented Hematologic/Lymphatic Hematologic/Lymphatic: Reports systems reviewed and no addt'l complaints, except as documented Allergic/Immunologic Allergic/Immunologic: Reports systems reviewed and no addt'l complaints, except as documented Vital Signs Vital Signs Vital Signs: 07/20/23 07:23 07/20/23 07:23 07/20/23 07:26 Temperature Temperature Source Pulse Rate 110 H 105 H Respiratory Rate Blood Pressure 144/77 H BP Systolic 144 BP Diastolic 77 Pulse Ox 07/20/23 07:26 07/20/23 07:23 07/20/23 07:23 Temperature Temperature Source Tympanic Pulse Rate Respiratory Rate 16 Blood Pressure BP Systolic BP Diastolic Pulse Ox 98 07/20/23 07:23 07/20/23 07:23 Temperature 97.5 F L Temperature Source Pulse Rate Respiratory Rate Blood Pressure BP Systolic BP Diastolic Pulse Ox 98 Weight Weight: 201 lb Body Mass Index (BMI) 32.4 Physical Exam Const alert and oriented x3 General Appearance: cooperative Orientation / Consciousness: awake, oriented to person, oriented to place and oriented to time Exam Limitations: no limitations HEENT normocephalic Head and Scalp: normal to inspection, normocephalic and atraumatic Face and Sinus: normal facial exam Eyes General Eye: normal appearance of both eyes Neck full ROM Chest Chest: symmetrical chest wall rise Resp normal respiratory effort and normal air movement Auscultation: clear to auscultation bilaterally Cardio regular rate, regular rhythm, S1 normal heart sound, S2 normal heart sound, no murmurs, no rub, no gallops and no clicks GI normal to inspection, nondistended, normoactive bowel sounds and non-tender appearance of the vagina normal Bladder / Kidney Exam: no CVA tenderness Back/Spine normal ROM Extremity normal to inspection and full ROM Skin no rashes or lesions noted Neuro oriented x3, CN's II-XII intact bilaterally and moves all extremities Sensorium / Orientation: awake, alert and oriented to person Motor Exam: clonus absent Deep Tendon Reflexes: Rt Patellar (L4): 2+ and Lt Patellar (L4): 2+ Labs Labs Labs: Blood Type A NEGATIVE Antibody Screen NEGATIVE Hct 32.7 % (37-47) L Hgb 11.3 g/dL (12.0-15.0) L Syphilis Total Ab Non-reactive GBS positive A negative HIV negative RPR negative Rubella Immune HBsAG negative HepC negative GC/CT negative Assessment & Plan (1) Rh negative state in antepartum period: (2) Benign gestational thrombocytopenia, antepartum: (3) Hx of macrosomia in in prior , currently : (4) LGA (large for gestational age) fetus: (5) Polyhydramnios affecting : (6) Encounter for induction of labor: (7) Oral herpes simplex infection: COMMENT: Outbreaks during , suppressive therapy. (8) History of gestational hypertension: COMMENT: first PLAN: Plan 1) Admit to labor and delivery 2) Routine labs 3) [place] and pitocin 4) Pain management upon request 5) [facility] physician, notified of patient status and of above assessment and plan 6) Suspected macrosomia, 9lb 3oz at 37 wk
[2023-07-20 08:35] LABS: Syphilis Antibodies Non-reactive
[2023-07-20] MEDS: Oxytocin 15 Units/NS 250ml 15 UNITS/250 ML IV.SOLN 2 UNITS IV (08:58)
[2023-07-20] MEDS: Penicillin G Pot 5,000,000 UNITS in 0.9% Normal Saline (100mL MB+) 100 ML 150 UNITS IV (09:34)
[2023-07-20 09:49] LABS: ALB/GLOB Ratio 0.8 RATIO (0.9-2.4); AST(SGOT) 15 U/L (15-37); Alanine Aminotransfer ALT/SGPT 11 U/L (13-56); Albumin, Serum 2.5 g/dL (3.2-5.0); Alkaline Phosphatase 148 U/L (45-117); Anion Gap 3 (5-15); BUN 10 mg/dL (7-18); Calcium,Total 8.5 mg/dL (8.5-10.1); Chloride 110 mmol/L (98-107); Creatinine, Serum 0.71 mg/dL (0.55-1.02); EST Glomerular Filtration Rate 101 mL/min (>60); Est Glom Filt Rate - Afr Amer 122 mL/min (>60); Estimated Creatinine Clearance 129.38 ml/min; Globulin 3.3 g/dL (2.2-4.2); Glucose 79 mg/dL (74-106); Potassium 3.7 mmol/L (3.5-5.1); Protein, Total 5.8 g/dL (6.4-8.2); Sodium Level 138 mmol/L (136-145); Uric Acid 4.2 mg/dL (2.6-6.0)
[2023-07-20 11:09] LABS: Protein:Creat Ratio 204 mg/g CRE (0-200)
[2023-07-20] MEDS: Penicillin G 3,000,000 Units 50 ML 100 UNITS IV (14:00)
[2023-07-20] MEDS: Lactated Ringers 1,000 ML 200 ML IV (14:05)
[2023-07-20] MEDS: fentaNYL-bupivacaine (epidural) 100 ML BAG EPIDURAL (14:21)
[2023-07-20] MEDS: Oxytocin 10 UNITS/ML Vial IM (15:36)
--- NOTE | 2023-07-20 15:52 | EX.PCM.OBRPT ---
Assessment & Plan (1) Vaginal delivery: (2) First degree perineal laceration: Maternal Data Information ISIS Calculator Estimated Delivery Date Method Current WG Current Estimate 07/21/23 Manual 39w 6d Vaginal Delivery Maternal Presentation Maternal Presentation: Elective Induction Maternal Presentation: Suspected macrosomia, Polyhydramnios SHELLEY 29.5 Type of Induction: Pitocin Operative Information Date of Procedure: 07/20/23 Pre-Operative Diagnosis: Induction of labor Post-Operative Diagnosis: , first degree perineal laceration Surgery / Procedure Performed: Spontaneous Vaginal Delivery Type of Anesthesia: Epidural Estimated Blood Loss: 450ml Time of Delivery: 15:25 Findings Description of Procedure: Progressed to complete with urge to push. Epidural for pain management. of viable female over first degree perineal laceration. APGARS 8,9 respectively. Infant head delivered with body immediately forthcoming. Placed on maternal abdomen, strong cry. Mouth and nares wiped for secretions. Pitocin started for active 3rd stage management. Cord doubly clamped and cut by FOB after pulsations ceased, delayed cord clamping. Placenta delivered intact via garcia, 3 vessel cord intact. Perineum inspected and revealed 2nd degree perineal laceration. Repaired with 3.0 vicryl rapide and epidural. Fundus firm and hemostasis achieved. EBL 450ml. Mom and baby stable, planning to breastfeed. Family bonding well. notified of delivery. Presentation: Vertex and AIDA Amniotic Membrane Rupture Type: Artificial Amniotic Fluid Description: Clear Placental Delivery Description: Spontaneous Placenta Disposition: [facility] Cord Vessel Description: 3 Vessels Cord Entanglement: None Infant A Gender: Female (1 minute): 9 (5 minute): 9 Delayed Cord Clamping: Yes Post Vaginal Delivery Medications Given After Delivery: IV Pitocin and IM Pitocin Episiotomy Description: None Laceration: Perineal Extension/lac and 1st degree Complication Complications: None
[2023-07-20] MEDS: Oxytocin 15 Units/NS 250ml 15 UNITS/250 ML IV.SOLN 83 UNITS IV (16:00)
[2023-07-20] MEDS: 0.9% Saline Lock 10 ML Syringe IV (19:48)
[2023-07-21 00:40] VITALS: BP 114/76; PULSE 103; RESP 18; TEMP 36.7; O2SAT 97
[2023-07-21] MEDS: 0.9% Saline Lock 10 ML Syringe IV (04:12)
[2023-07-21] MEDS: Rho(D) Immune Globulin 300 MCG (1500 Unit) Syringe IV (04:12)
[2023-07-21 04:18] VITALS: BP 112/75; PULSE 80; RESP 18; TEMP 36.6; O2SAT 97
[2023-07-21 06:11] LABS: Absolute Lymphocyte Count 1.53 X10^3/uL (0.83-4.51); Absolute Neutrophil Count 7.9 X10^3/uL (2.0-7.7); Basophil# 0.03 X10^3/uL; Basophil% 0.3 % (0-1); Hematocrit 30.5 % (37-47); Hemoglobin 10.1 g/dL (12.0-15.0); Lymphocyte # 1.53 X10^3/ul (0.83-4.51); Lymphocyte % 14.7 % (19-41); Mean Corp Hgb Conc 33.1 g/dL (32-36); Mean Corpuscular Hgb 30.6 pg (27.0-32.0); Mean Corpuscular Volume 92.4 fL (81-99); Mean Platelet Vol. 10.8 fl (6.2-12.0); Monocyte# 0.82 X10^3/uL; Monocyte% 7.9 % (0-10); NRBC Flagged by Analyzer 0 % (0-5); Neutrophil # 7.85 X10^3/uL (2.7-7.7); Neutrophil % 75.4 % (47-70); Platelet Count 108 K/mm3 (150-450); RBC Distribution Width CV 14.4 % (11.6-14.6); White Blood Count 10.4 K/mm3 (4.4-11.0)
[2023-07-21 07:48] VITALS: BP 113/74; PULSE 98; RESP 16; TEMP 36.7
--- NOTE | 2023-07-21 08:18 | PCM.PN.OB ---
Subjective Subjective Denies complaints Objective Data Objective Data Vital Signs: Vital Signs Temp Pulse Resp BP Pulse Ox O2 Del Method 98.1 F 98 16 113/74 97 Room Air 07/21/23 07:48 07/21/23 07:48 07/21/23 07:48 07/21/23 07:48 07/21/23 04:18 07/21/23 07:48 Oxygen Delivery Method Room Air Weight: 201 lb Body Mass Index (BMI) 32.4 Intake & Output: Intake and Output for Last 24 Hours 07/19/23 07/20/23 07/21/23 23:59 23:59 23:59 Intake Total 1938.33 / 1938.33 Output Total 950 / 950 300 / 300 Balance 988.33 / 988.33 -300 / -300 Lab / Micro Data 07/21/23 06:00 07/20/23 08:00 Labs: Laboratory Results - last 24 hr 07/20/23 07:45: Syphilis Total Ab Non-reactive, Blood Type A NEGATIVE, Antibody Screen NEGATIVE 07/20/23 08:00: Sodium 138, Potassium 3.7, Chloride 110 H, Carbon Dioxide 25.0, Anion Gap 3 L, BUN 10, Creatinine 0.71, Estim Creat Clear Calc 129.38, Est GFR (MDRD) Af Amer 122, Est GFR (MDRD) Non-Af 101, BUN/Creatinine Ratio 14.0, Glucose 79, Uric Acid 4.2, Calcium 8.5, Total Bilirubin 0.80, AST 15, ALT 11 L, Alkaline Phosphatase 148 H, Total Protein 5.8 L, Albumin 2.5 L, Globulin 3.3, Albumin/Globulin Ratio 0.8 L 07/20/23 10:45: U Random Total Protein 11.0, Urine Creatinine 53.90, Protein/Creatinin Ratio 204 H 07/20/23 22:35: Screen NEGATIVE, Baby's Blood Type A POSITIVE, Baby's [place] NEGATIVE 07/21/23 06:00: WBC 10.4, RBC 3.30 L, Hgb 10.1 L, Hct 30.5 L, MCV 92.4, MCH 30.6, MCHC 33.1, RDW Std Deviation 48.0 H, RDW Coeff of Lena 14.4, Plt Count 108 L, MPV 10.8, Immature Gran % (Auto) 0.700, Neut % (Auto) 75.4 H, Lymph % (Auto) 14.7 L, [place] % (Auto) 7.9, Eos % (Auto) 1.0, Baso % (Auto) 0.3, Absolute Neuts (auto) 7.9 H, Absolute Lymphs (auto) 1.53, Nucleated RBC % 0 Physical Exam Const alert, oriented x3 and no apparent distress HEENT normocephalic GI soft to palpation, non-tender and non-distended GI Narrative: fundus firm, mid & below umbilicus Extremity normal to inspection and no calf tenderness Assessment & Plan (1) Vaginal delivery: COMMENT: PPD#1 PLAN: Plan D/c home ROutine care
--- NOTE | 2023-07-21 08:20 | DS.PCM_ITS ---
Providers Date of Admission: 07/20/23 Primary Care Physician: Dr. Saji Obrien DO Reason For Visit: VAGINAL DELIVERY Diagnosis Discharge Diagnosis (1) Vaginal delivery: Status: Acute Code(s): O80 - Encounter for full-term uncomplicated delivery Plan D/c home ROutine care Medications at Discharge Home Medications valacyclovir 500 mg tablet 500 mg PO BID oral hsv 07/20/23 Hospital Course Operations None Summary of Care Provided Minutes Spent on Discharge: 15 Weight / BMI Weight Weight: 201 lb Body Mass Index (BMI) 32.4 ABG / Lab / Microbiology Data 07/21/23 06:00 07/20/23 08:00 Laboratory: Laboratory Results - last 24 hr 07/20/23 07:45: Syphilis Total Ab Non-reactive, Blood Type A NEGATIVE, Antibody Screen NEGATIVE 07/20/23 08:00: Sodium 138, Potassium 3.7, Chloride 110 H, Carbon Dioxide 25.0, Anion Gap 3 L, BUN 10, Creatinine 0.71, Estim Creat Clear Calc 129.38, Est GFR (MDRD) Af Amer 122, Est GFR (MDRD) Non-Af 101, BUN/Creatinine Ratio 14.0, Glucose 79, Uric Acid 4.2, Calcium 8.5, Total Bilirubin 0.80, AST 15, ALT 11 L, Alkaline Phosphatase 148 H, Total Protein 5.8 L, Albumin 2.5 L, Globulin 3.3, Al bumin/Globulin Ratio 0.8 L 07/20/23 10:45: U Random Total Protein 11.0, Urine Creatinine 53.90, Protein/Creatinin Ratio 204 H 07/20/23 22:35: Screen NEGATIVE, Baby's Blood Type A POSITIVE, Baby's [place] NEGATIVE 07/21/23 06:00: WBC 10.4, RBC 3.30 L, Hgb 10.1 L, Hct 30.5 L, MCV 92.4, MCH 30.6, MCHC 33.1, RDW Std Deviation 48.0 H, RDW Coeff of Lena 14.4, Plt Count 108 L, MPV 10.8, Immature Gran % (Auto) 0.700, Neut % (Auto) 75.4 H, Lymph % (Auto) 14.7 L, [place] % (Auto) 7.9, Eos % (Auto) 1.0, Baso % (Auto) 0.3, Absolute Neuts (auto) 7.9 H, Absolute Lymphs (auto) 1.53, Nucleated RBC % 0 D/C Instructions Discharge Diet: No restrictions May resume sexual activity in: 6 weeks Weight Bearing Status: Weight bearing as tolerated Call your doctor if you observe: Fever of 101 or Higher, Coldness, Increased Pain, Change in Color, Inability to urinate, Inability to have a bowel movement, Using more than 1 pad per hour, Shortness of breath, Dizziness, Fainting spells, Chest pain, Increased palpitations (irregular heartbeat), Calf discomfort and Uncontrolled pain Please Follow Up With: Maura Rice CNM When: Follow up in 2 and 6 weeks for visits. Meaningful Use Info Meaningful Use Meaningful Use Diagnoses (Choose all that apply): None applicable Ischemic Stroke Statin Dosing Therapy Reference: STATIN DOSE THERAPY REFERENCE: * Patients > 75 years receive moderate or high dose statin therapy. * Patients 75 years or YOUNGER should receive HIGH intensity statin dose unless contraindicated. You will be required to document reason for non-treatment if statin daily dose does not meet guidelines. HIGH DOSE STATIN THERAPY DAILY Atorvastatin > than or = to 40 mg Rosuvastatin > than or = to 20 mg Amlodipine + Atorvastatin > than or = to 2.5/40 mg Ezetimibe + Simvastatin 10/80 mg Simvastatin 80mg Discharge Plan Admission Admit Date/Time: 07/20/23 07:39 Primary Reason for Your Visit: Vaginal delivery Attending Provider: Maura Rice Primary Care Provider: Saji Obrien Discharge Orders/Prescriptions Prescriptions: No Action valacyclovir 500 mg tablet 500 mg PO BID Referrals / Follow Up: Saji Obrien DO [Primary Care Provider] - Disposition Disposition (needs filled in before D/C Order can be placed): Home, Self Care
[2023-07-21 13:00] VITALS: BP 122/81; PULSE 90; RESP 16; TEMP 36.7; O2SAT 98
== END 2023-07-21 16:45 | disposition home or self-care (01) | DRG 806 ==
PROVIDERS: Admitting Provider Advanced Practice Midwife; Referring Provider Advanced Practice Midwife; Visit Provider Advanced Practice Midwife
DX: O40.3XX0 Polyhydramnios, third trimester, not applicable or unspecified (principal); Z37.0 Single live birth; O99.12 Other diseases of the blood and blood-forming organs and certain disorders involving the immune mechanism complicating childbirth; D69.6 Thrombocytopenia, unspecified; O36.63X0 Maternal care for excessive fetal growth, third trimester, not applicable or unspecified; O26.893 Other specified pregnancy related conditions, third trimester; Z67.11 Type A blood, Rh negative; O70.1 Second degree perineal laceration during delivery; Z3A.39 39 weeks gestation of pregnancy; Z87.59 Personal history of other complications of pregnancy, childbirth and the puerperium
CPT/HCPCS: 59025; 59050; 80053; 82570; 84156; 84550; 85025; 85461; 86780; 86850; 86900; 86901; 90384; 99221; J7120; A4216; G0378; J2790; J2791